=== PATIENT | male | born 1975 | race Caucasian/White ===

== ENCOUNTER 2017-10-13 20:32 | Emergency (ER) | payer OTHER ==
[~2017-10-13] VITALS: Ht 188 cm; Wt 92.1 kg
--- NOTE | ~2017-10-13 | EKG ---
[place] [address] [facility] [place] [address] ELECTROCARDIOGRAM REPORT Name: CORY CHAVES [id number] Admission: 10/13/17 Attend Phys: Discharge: 10/13/17 Date of : 77 Report #: [id number] THIS REPORT FOR: //name// [facility] ED Test Date: 2017-10-13 Test Time: 20:36:54 Pat Name: CORY CHAVES Department: Room: Gender: Stockfeed Miller: LUIS EDUARDO : 1975 Requested By: Jennifer Gardiner Order Number: [id number] MD: Marcus Hernandez Measurements Intervals [place] Rate: 71 P: 46 AL: 160 QRS: 15 QRSD: 95 T: 32 QT: 384 QTc: 418 Interpretive Statements Sinus rhythm No significant abnormality No previous ECG available for comparison Electronically Signed On 10-14-2017 9:09:15 CDT by Marcus Hernandez [email or web address] <ELECTRONICALLY SIGNED> By: Marcus Hernandez MD, [facility] 10/14/17 0909 2036 2036 Marcus Hernandez MD, FAC /EPI
[~2017-10-13 20:32] MED LIST: COREG6.25 MG PO; ZPAK PO
[2017-10-13] MEDS ORDERED: NOHOMEMEDICATIONS (20:52)
[2017-10-13 20:53] LABS: HEMATOCRIT 47.1 % (42.0-52.0); HEMOGLOBIN 16.6 gm/dL (14.0-18.0); MCH 31.5 pg (26.0-34.0); MCHC 35.3 g/dL (28.0-37.0); MCV 89.2 fL (80.0-100.0); RBC 5.28 mil/uL (4.50-6.00); RDW 13.2 % (10.5-14.5); WBC 5.1 thou/uL (4.0-11.0)
[2017-10-13 21:01] LABS: ANION GAP 8 mmol/L (7-16); BUN 12 mg/dL (7-18); CALCIUM 8.5 mg/dL (8.5-10.1); CHLORIDE 103 mmol/L (98-107); CO2 26 mmol/L (21-32); CREATININE 1.2 mg/dL (0.7-1.3); GLUCOSE 101 mg/dL (74-106); POTASSIUM 3.5 mmol/L (3.5-5.1); SODIUM 137 mmol/L (136-145)
[2017-10-13 21:09] LABS: ALBUMIN 3.6 g/dL (3.4-5.0); SGOT 61 U/L (15-37); SGPT 117 U/L (30-65); TOTAL BILIRUBIN 0.8 mg/dL (<0.1-1.0); TOTAL PROTEIN 7.5 g/dL (6.4-8.2); TROPONIN-I <0.06 ng/mL (<0.06)
[2017-10-13 21:28] LABS: ABSOLUTE NEUTROPHILS 2.1 thou/uL (1.4-8.2); ANISOCYTOSIS 1+; ATYPICAL LYMPHS 2 %
[2017-10-13 21:29] LABS: PLATELET COUNT 91 thou/uL (150-400)
[2017-10-13 23:28] VITALS: BP 133/93
== END 2017-10-13 23:29 | disposition home or self-care (01) ==
LOC: ER 20:32
PROVIDERS: Physician Assistant
DX: R07.89 Other chest pain (principal); R20.2 Paresthesia of skin; I10 Essential (primary) hypertension

== ENCOUNTER → 2017-10-17 | Outpatient (CLI) | payer OTHER ==
[~2017-10-17] MED LIST changes: +NOHOMEMEDICATIONS
--- NOTE | ~2017-10-17 | EXE ---
[facility] [place] [address] STRESS ECHOCARDIOGRAM Name: ANASTACIOCORY Room #: REG ZOHREH Mobley#: [id number] Admission: 10/17/17 Attend Phys: Danilo Yi Discharge: Date of : 77 Date of Service: 10/17/17 1025 Report #: [id number] THIS REPORT FOR: //name// APPROVED REPORT Study performed: 10/17/2017 09:10:24 Exam: Stress Echocardiogram Indication: Chest pain Patient Location: Out-Patient Stress Nurse: Tona Valencia RN Room #: Echo lab 2 Status: routine Ht: 6 ft 2 in HR: 75 bpm BP: 128/88 mmHg Rhythm: NSR Medical History Cardiac Risk Factors: FHX of CAD Exercise History: Physically active Procedure The patient underwent an Exercise Stress Test using the Darci Protocol. Blood pressure, heart rate, and EKG were monitored. An Echocardiogram was performed by mold repair technician in four stages in quad fashion. At peak stress, four selected images were obtained and placed side by side with resting images for comparison. Stress Test Details Stress Test: Exercise stress testing was performed using a Darci protocol. HR Resting HR: 75 bpm Max Heart Rate (APMHR): 179 bpm Max HR Achieved: 179 bpm Target HR (85% APMHR): 152 bpm % of APMHR: 100 Recovery HR: 100 bpm HR response to stress: Normal HR response to stress BP Resting BP: 128/88 mmHg Max BP: 190/90 mmHg Recovery BP: 138/80 mmHg ECG [facility] [address] [place] [address] STRESS ECHOCARDIOGRAM Name: CORY CHAVES Room #: REG [facility]#: [id number] Admission: 10/17/17 Attend Phys: Danilo Yi Discharge: Date of : 77 Date of Service: 10/17/17 1025 Report #: [id number] Resting ECG: Sinus Rhythm Stress ECG: Sinus Tachycardia Recovery ECG: Sinus Rhythm Clinical Reason for Termination: Maximal effort Exercise duration: 12 min sec Highest Stage Achieved: Stage 4: 4.2 mph at 16% grade. Exercise capacity: 13.7 METs Overall Exercise Capacity for Age: Good Stress ECG Conclusion 1. SUBJECTIVELY NEGATIVE FOR ISCHEMIA 2. ELECTROCARDIOGRAPHICALLY NEGATIVE FOR ISCHEMIA 3. EXCELLENT FUNCTIONAL CAPACITY Pre-Stress Echo The resting Echocardiogram showed normal left ventricular contractility with an estimated Ejection Fraction of about >55%. Post-Stress Echo The stress Echocardiogram showed normal left ventricular contractility with an estimated Ejection Fraction of about >70%. Clinical Normal augmentation of myocardial wall segments using a 17 segment model. Conclusion Clinical Response: Non-ischemic Exercise Capacity: Superior Stress ECG Response: Non-ischemic Stress Echo Images: Non-ischemic 1. LOW RISK STUDY No prior study available for comparison. Other Information Study Quality: Good <Conclusion> 1. LOW RISK STUDY <ELECTRONICALLY SIGNED> By: Danilo Dove MD 10/17/17 1025 1025 1025 Danilo Dove MD /INF
== END ==
LOC: CV 08:39
DX: R07.9 Chest pain, unspecified (principal)

== ENCOUNTER 2019-06-01 09:56 | Emergency (ER) | payer OTHER ==
[~2019-06-01] VITALS: Ht 188 cm; Wt 95.3 kg
[2019-06-01 09:56] VITALS: BP 155/108
== END 2019-06-01 10:29 | disposition home or self-care (01) ==
LOC: ER 09:56
DX: R50.9 Fever, unspecified (principal); R06.02 Shortness of breath; R05 Cough; R53.1 Weakness